=== PATIENT | female | born 1940 | race Caucasian/White ===

== ENCOUNTER 2019-09-12 06:34 | Day surgery (SDC) | payer MEDICARE, OTHER ==
[~2019-09-12] VITALS: Ht 154.9 cm; Wt 53.1 kg
[~2019-09-12 06:34] MED LIST: ACET-812 PO; ALPR-623 PO; ASPI-1071 PO; CALC-3 PO; LEVO100T PO; NAPR220C15 PO; OMEP40CA13 PO; PRAV20TA4 PO; SUCR1TAB PO; VITAMIN B50 PO; [UNRECOGNIZED DRUG - CODE] PO; [UNRECOGNIZED DRUG - CODE] PO
[2019-09-12] MEDS ORDERED: normal saline 1000ml 1,000 ML IV SCH (07:00)
[2019-09-12 07:08] VITALS: BP 132/71
[2019-09-12] MEDS ORDERED: METO100T14 PO (07:43)
[2019-09-12] MEDS ORDERED: METO50TA17 PO (07:43)
[2019-09-12] MEDS ORDERED: AMLO2.5T2 PO (07:43)
[2019-09-12] MEDS ORDERED: PRAV80TA3 PO (07:43)
[2019-09-12] MEDS ORDERED: LIDOcaine 1% 30ml preserv. free vial SQ ONE (08:10)
[2019-09-12] MEDS ORDERED: LIDOcaine/PRILOcaine 5gm cream TP ONE (08:15)
--- NOTE | 2019-09-12 08:34 | NUR ---
Rajani HURT administered lidocaine to rt upper chest. Chevy inplace.
[2019-09-12] MEDS ORDERED: iohexol 300 MG/1 ML 50ml polymer ONE (08:39)
--- NOTE | 2019-09-12 08:41 | NUR ---
Angio RNTala is picking up patient for procedure.
[2019-09-12] MEDS ORDERED: tPA-cathflo 2 MG/2 ml IV flush ONE (08:59)
[2019-09-12 09:21] VITALS: BP 124/92
== END 2019-09-12 09:30 | disposition home or self-care (01) ==
LOC: SSTAY O 06:34
PROVIDERS: ATTEND Radiology Diagnostic Radiology
DX: C50.411 Malignant neoplasm of upper-outer quadrant of right female breast (principal); I10 Essential (primary) hypertension; K21.9 Gastro-esophageal reflux disease without esophagitis; E78.00 Pure hypercholesterolemia, unspecified; E03.9 Hypothyroidism, unspecified; Z90.12 Acquired absence of left breast and nipple; Z79.899 Other long term (current) drug therapy
CPT/HCPCS: 36598; J2997; Q9967; J7030